=== PATIENT | female | born 1950 | race Caucasian/White ===

== ENCOUNTER 2019-04-20 08:31 | Inpatient (IN) ==
--- NOTE | 2019-04-12 13:45 | EKG Report ---
Test Performed on : 04/12/2019 1:37:05 PM Test Reason : PAT Blood Pressure : / mmHG Vent. Rate : 087 BPM Atrial Rate : 087 BPM P-R Int : 152 ms QRS Dur : 092 ms QT Int : 330 ms P-R-T Axes : 055 -09 085 degrees QTc Int : 397 ms Normal sinus rhythm. Possible Left atrial enlargement Incomplete right bundle branch block T wave abnormality, consider lateral ischemia Abnormal ECG No previous ECGs available Confirmed by Vladislav HERNANDEZ, Renato Alejandra ([id number]) on 04/13/2019 12:23:21 PM
[2019-04-12 14:03] LABS: BASO# 0.05 X1000 (0.0-0.2); BASO% 0.6 % (0.0-0.8); EOS% 3.4 % (0.0-10.0); HEMATOCRIT 47.1 % (37.0-47.0); HEMOGLOBIN 15.1 g/dL (12.0-16.0); LYMPH# 2.31 X1000 (1.2-3.4); LYMPH% 26.1 % (20.5-51.1); MCH 28.8 PG (27-31); MCHC 32.1 g/dL (33-37); MCV 89.7 FL (81-99); MONO% 5.6 % (1.7-9.3); MPV 11.4 FL (7.4-10.4); NEUT# 5.69 X1000 (1.4-6.5); NEUT% 64.3 % (42.2-75.2); PLT 213 X1000 (130-400); RBC 5.25 XMIL (4.2-5.4); RDW 14.1 % (11.5-14.5); WBC 8.85 X1000 (4.8-10.8)
[2019-04-12 14:22] LABS: CALCIUM 9.1 mg/dL (8.8-10.2); CREATININE 1.4 mg/dL (0.5-0.9); POTASSIUM 3.9 mmol/L (3.5-5.1)
[2019-04-20] MEDS ORDERED: KEFZOL 1 GM/D5W 2 GM/100 ML IVPB ONE (09:37)
[2019-04-20] MEDS ORDERED: PEPCID ONE (09:37)
[2019-04-20] MEDS ORDERED: REGLAN ONE (09:37)
[2019-04-20] MEDS ORDERED: LR 1,000 ML ONE (09:37)
[2019-04-20] MEDS ORDERED: COLACE ONE (09:43)
[2019-04-20] MEDS ORDERED: LYRICA ONE (09:44)
[2019-04-20] MEDS ORDERED: ATIVAN PO ONE (10:17)
[2019-04-20] MEDS ORDERED: XYLOCAINE-MPF 2% ONE (10:47)
[2019-04-20] MEDS ORDERED: DIPRIVAN 1% ONE (10:47)
[2019-04-20] MEDS ORDERED: SODIUM CHLORIDE 0.9% 10 ML ONE (12:45)
[2019-04-20] MEDS ORDERED: EPHEDRINE ONE (12:45)
[2019-04-20] MEDS ORDERED: FENTANYL ONE (12:47)
[2019-04-20] MEDS ORDERED: EXPAREL 1.3% ONE (13:11)
[2019-04-20] MEDS ORDERED: MARCAINE 0.5% PF ONE (13:11)
[2019-04-20] MEDS ORDERED: DECADRON ONE (13:49)
[2019-04-20] MEDS ORDERED: ZOFRAN ONE (13:49)
[2019-04-20] MEDS ORDERED: ZOFRAN IV PRN (14:59)
[2019-04-20] MEDS ORDERED: MORPHINE IV PRN (14:59)
[2019-04-20] MEDS ORDERED: SENOKOT PO PRN (14:59)
[2019-04-20] MEDS: OXY IR PO PRN (18:08)
[2019-04-20] MEDS: KEFZOL 1 GM/D5W 1 GM/50 ML IVPB IV SCH (22:09)
[2019-04-20] MEDS: PERIDEX MT SCH (22:10)
--- NOTE | 2019-04-21 01:15 | OPERATIVE NOTE ---
PROCEDURE DATE: 04/20/2019 PREOPERATIVE DIAGNOSIS: Right ankle posttraumatic osteoarthritis. POSTOPERATIVE DIAGNOSIS: Right ankle posttraumatic osteoarthritis. PROCEDURE: Right ankle replacement. SURGEON: Clay Flores MD TIE BUYER: LESLEY Dominguez, who was an integral part of the case, helping with all aspects of the case and helping to increase our OR efficiency greatly. ANESTHESIA: General with LMA. TOURNIQUET TIME: A little over an hour and a half. IMPLANTS: [employer] Infinity total ankle: Size 3 tibia, size 3 talus and a 6 mm poly. DISPOSITION: To PACU, hemodynamically stable. INDICATION FOR PROCEDURE: Ms. Villanueva is a 68-year-old female who presented my clinic with posttraumatic ankle osteoarthritis. We discussed all options including nonoperative and operative intervention, an ankle fusion and ankle replacement. After a long talk we decided on an ankle replacement. DESCRIPTION OF PROCEDURE: Ms. Villanueva was identified in the preoperative holding area. The right ankle was marked as the correct surgical site. She was then wheeled to the operating room and placed supine on the operating table. All bony prominences were well padded. She was induced under general anesthesia. LMA was placed. Tourniquet was placed to the right thigh. The right lower extremity was then prepped with chlorhexidine, gluconate scrub and then ChloraPrep, and then draped in normal sterile fashion. Surgical pause was performed. We identified the correct patient, correct site, and the correct procedure. Preoperative antibiotics were given. Esmarch was used to exsanguinate the right lower extremity and tourniquet was inflated to 300 mmHg. I started with a longitudinal incision over the anterior aspect of the ankle. Dissection was carried down right over the EHL tendon. We retracted it laterally and then went in the interval between the EHL and the tibialis anterior. We protected the neurovascular bundle the entire time. I then performed a capsulotomy and exposed the ankle joint itself, and the distal tibia and the top of the talus. After we had really good exposure, I then started with the surgical guide for the Infinity total ankle. I started with the medial gutter rotation alignment. I got my anterior tibial pin in, and then I put a pin in the tubercle. I was able to then get my alignment. Fluoroscopic imaging was used to get the alignment just right and I got 2 more pins in the tibia. I then put my initial guide on. We got it into place and we ended up sizing it to a size 3 tibia and talus. Once I got everything in position, I was then able to pin it all into place and we were able to couple the cuts of the tibia and the talus. I then drilled the corners, exchanged for a cut guide and then made all my cuts. The bone actually came out easy, and I felt we had really good cuts. I then performed trials with a 3 and a 3, and that actually fit really well. I then pinned the tibial tray into place and then the talar guide as well. I then broached the tibia and then put the temper guide on for the talar cuts. I then did my chamber cuts and drilling. I was then able to trial the components again, and the 3, the 3 and the 6 mm poly actually worked really well. The gutters looked clean. I did clean out the gutters just a little bit, of just debris. At this point we irrigated everything copiously with normal saline. I put the regular components in, malleted the tibia in first and then the talus. I then put the poly in. She had really good range of motion. It was smooth. The ankle was nice and stable. Our alignment looked fantastic on both AP and lateral views, and the implants were well seated. We then closed everything in a layered fashion with 0 Vicryl for the deep layer, 2-0 Vicryl for the subcutaneous and nylon on the skin. Adaptic, 4 x 4s, ABD, Sof-Rol and posterior splint were applied. She was then awoken from general anesthesia, moved to her own bed and taken to PACU in stable condition. PLAN: Postoperatively she will be nonweightbearing for this week. She will be admitted overnight and I will see her in the morning. cc: Clay Flores MD
[2019-04-21] MEDS: KEFZOL 1 GM/D5W 1 GM/50 ML IVPB IV SCH ×2 (04:33→13:25)
[2019-04-21] MEDS ORDERED: KLONOPIN PO PRN (05:39)
[2019-04-21] MEDS ORDERED: LOVENOX SUBQ SCH (06:00)
[2019-04-21] MEDS: OXY IR PO PRN ×2 (07:03→11:06)
[2019-04-21 08:37] VITALS: BP 105/54
[2019-04-21] MEDS: MAXZIDE-25 PO SCH ×2 (09:20→09:26)
[2019-04-21] MEDS: LIPITOR PO SCH ×2 (09:21→09:25)
[2019-04-21] MEDS: PAXIL PO SCH ×2 (09:21→09:26)
[2019-04-21] MEDS: PERIDEX MT SCH (09:21)
--- NOTE | 2019-04-21 15:44 | ORTHOPAEDICS PROGRESS NOTE ---
DATE: 04/21/2019 SUBJECTIVE: Ms. Villanueva is lying in bed this morning. Overall, she did well throughout the night. Her says she did have a lot of negative thoughts yesterday, but that has improved by this morning. Pain navarro, she is getting some pain when she moves the toes. Otherwise, it is okay. OBJECTIVE: Right lower extremity exam, her splint is clean, dry, and intact. She is able to move the toes well. She has good capillary refill to all the toes. ASSESSMENT: Status post right ankle replacement. PLAN: I think Ms. Villanueva is doing really well. She will be discharged home today. She is nonweightbearing right lower extremity and I will see her in 1 week in clinic. cc: Clay Flores MD
[2019-04-21] MEDS ORDERED: KLONOPIN PO SCH (21:00)
--- NOTE | 2019-04-25 21:59 | DISCHARGE SUMMARY ---
ADMISSION DATE: 04/20/2019 DISCHARGE DATE: 04/21/2019 ADMITTING DIAGNOSIS: Right ankle posttraumatic osteoarthritis. DISCHARGE DIAGNOSES: Right ankle posttraumatic osteoarthritis, status post right total ankle replacement. PROCEDURES: On 04/20/2019 Dr. Flores performed a right total ankle replacement. HOSPITAL COURSE: Ms. Villanueva is a 68-year-old female who presented to Dr. Flores's clinic with posttraumatic ankle osteoarthritis. They had discussed multiple options including nonoperative and operative treatment. They also discussed ankle fusion versus ankle replacement. After a long discussion, they decided to do a total ankle replacement. The patient was taken to the operating room where satisfactory anesthesia was obtained. Under satisfactory anesthesia, she tolerated the procedure well was transferred to the recovery room. After satisfactory recovery, she was transferred to [address] [place] [address]. She has had an uneventful postoperative course. She has been nonweightbearing to the right lower extremity. She has been able to transfer and ambulate well on crutches and a walker. She has been able to void and her move her bowels. She is tolerating food. Her pain is under control. LABORATORY: She has no postoperative labs. DISCHARGE VITAL SIGNS: Temperature is 98 degrees, pulse is 88, respirations 20, blood pressure 105/54, he is 98% on room air. At this time she is ready for discharge. DISCHARGE MEDICATIONS: Atorvastatin 10 mg p.o. daily, Paxil 40 mg p.o. daily, Lovenox 40 mg subcu daily. Percocet 5 mg p.o. every 4 to 6 hours as needed for pain. DISCHARGE DISPOSITION: Ms. Villanueva is being discharged home to self-care. She knows to remain nonweightbearing to this right lower extremity. She is being discharged home on Lovenox for DVT prophylaxis. She is being discharged home on Percocet for pain control. She will follow up in the clinic in 1 week. We will take the splint down and assess the incision. Regular scheduled appointment. Again, weightbearing. She knows to call the office with any signs or symptoms of postoperative infection. Dictated by LESLEY Dominguez for lCay Flores MD cc: LESLEY Dominguez MD
== END 2019-04-21 12:00 | disposition home or self-care (01) | DRG 469 ==
LOC: PAT 08:31 → 4N 08:31 → OPS 08:31 → OBSVTOIN 14:32
PROVIDERS: ADMIT Orthopaedic Surgery; ATTEND Orthopaedic Surgery